=== PATIENT | female | born 1950 | race African-American/Black ===

== ENCOUNTER 2019-01-18 18:25 | Inpatient (IN) | payer OTHER ==
[~2019-01-18] VITALS: Ht 165.1 cm; Wt 104.0 kg
[2019-01-18] MEDS ORDERED: LISINOPRIL 20MG TABLET PO ONE (19:30)
[2019-01-18 19:49] LABS: CHLORIDE 111 mEq/L (98-107)
[2019-01-18 19:56] LABS: EOSINOPHILS % 1.9 % (0.0-5.0); HEMATOCRIT. 35.1 % (36.0-48.0); HEMOGLOBIN. 11.3 g/dL (12.0-16.0); LYMPHOCYTES % 28.3 % (20.0-50.0); MEAN CORPUSCULAR HEMOGLOBIN 26.6 pg (28.0-32.0); MEAN CORPUSCULAR VOLUME 83.1 fL (81.0-99.0); MONOCYTES % 8.2 % (2.0-8.0); NEUTROPHILS % 59.6 % (40.0-76.0); PLATELET 268 x1000/uL (130-400); RED BLOOD CELL COUNT 4.23 mill/uL (4.2-5.4)
[2019-01-18] MEDS ORDERED: ASPIRIN 325MG TABLET PO NR (21:00)
[2019-01-18] MEDS ORDERED: GUAIFENESIN 200MG/10ML SUGAR FREE UDC PO PRN (23:15)
[2019-01-18] MEDS ORDERED: IPRATROPIUM/ALBUTEROL 0.5-3(2.5)MG/3ML NEB INH PRN (23:15)
[2019-01-18] MEDS ORDERED: ZOLPIDEM TARTRATE 5MG TABLET PO PRN (23:15)
[2019-01-18] MEDS ORDERED: DOCUSATE SODIUM 100MG CAPSULE PO PRN (23:15)
[2019-01-18] MEDS ORDERED: CLONIDINE 0.1MG TABLET PO PRN (23:15)
[2019-01-18] MEDS ORDERED: ONDANSETRON HCL 4MG/2ML INJ IV PRN (23:15)
[2019-01-18] MEDS ORDERED: NITROGLYCERIN 0.4MG TABLET SL SL PRN (23:15)
[2019-01-18] MEDS ORDERED: TRAMADOL 50MG TABLET PO PRN (23:15)
[2019-01-18] MEDS ORDERED: MAGNESIUM/ALUMINUM HYDROXIDE/SIMETHICONE 30ML UDC PO PRN (23:15)
[2019-01-18 23:33] LABS: PROTHROMBIN TIME 10.5 sec (9.6-11.0)
[2019-01-18 23:36] LABS: T4 FREE 1.26 ng/dL (0.76-1.46)
[2019-01-18 23:46] LABS: FOLIC ACID (FOLATE) SERUM 12.1 ng/mL (>5.38)
[2019-01-19] VITALS (8 sets, daily range): BP systolic 133–146; BP diastolic 52–81
[2019-01-19] MEDS ORDERED: ENOXAPARIN 80MG/0.8ML SYR SUBCUT NR (04:00)
[2019-01-19] MEDS: ASPIRIN 325MG EC TABLET PO SCH (08:50)
[2019-01-19] MEDS: METOPROLOL TARTRATE 25MG TABLET PO SCH ×2 (08:50→20:57)
[2019-01-19] MEDS: FAMOTIDINE 20MG TABLET PO SCH ×2 (08:50→20:57)
[2019-01-19 09:45] LABS: CREATINE KINASE MB FRACTION 4.1 ng/mL (0.5-3.6)
[2019-01-19] MEDS: NITROGLYCERIN OINT 1GM/INCH UDPKT TD SCH ×2 (11:23→21:01)
[2019-01-19] MEDS ORDERED: ENOXAPARIN 80MG/0.8ML SYR SUBCUT SCH (18:00)
[2019-01-19] MEDS: ACETAMINOPHEN 325MG TABLET PO PRN ×2 (18:23→20:57)
[2019-01-19 19:16] LABS: CREATINE KINASE MB FRACTION 2.9 ng/mL (0.5-3.6)
[2019-01-20 04:00] VITALS: BP 100/47
[2019-01-20] MEDS: ACETAMINOPHEN 325MG TABLET PO PRN (04:45)
[2019-01-20] MEDS: NITROGLYCERIN OINT 1GM/INCH UDPKT TD SCH ×2 (06:27→13:46)
[2019-01-20 06:30] LABS: EOSINOPHILS % 3.7 % (0.0-5.0); HEMATOCRIT. 30.2 % (36.0-48.0); HEMOGLOBIN. 9.8 g/dL (12.0-16.0); LYMPHOCYTES % 39.2 % (20.0-50.0); MEAN CORPUSCULAR VOLUME 83.6 fL (81.0-99.0); MEAN PLATELET VOLUME 10.5 fl (7.4-10.4); MONOCYTES % 12.4 % (2.0-8.0); NEUTROPHILS % 43.7 % (40.0-76.0); PLATELET 220 x1000/uL (130-400); RED BLOOD CELL COUNT 3.62 mill/uL (4.2-5.4); RED CELL DISTRIBUTION WIDTH 15.3 % (11.6-14.6)
[2019-01-20 06:47] LABS: CHLORIDE 111 mEq/L (98-107)
[2019-01-20 08:03] VITALS: BP 119/59
[2019-01-20] MEDS ORDERED: ENOXAPARIN 100MG/ML SYR SUBCUT SCH (09:00)
[2019-01-20] MEDS: METOPROLOL TARTRATE 25MG TABLET PO SCH (10:51)
[2019-01-20] MEDS: ASPIRIN 325MG EC TABLET PO SCH (10:52)
[2019-01-20] MEDS: FAMOTIDINE 20MG TABLET PO SCH (10:52)
[2019-01-20 12:00] VITALS: BP 167/85
[2019-01-20 16:00] VITALS: BP 99/57
[2019-01-20 17:02] VITALS: BP 99/57
== END 2019-01-20 18:31 | disposition short-term general hospital (02) | DRG 281 ==
LOC: ER 21:45 → 6WST 23:45 → EDBEDREQ 23:48 → EDBEDREQTM 23:48 → ENRESERV 01-19 00:17 → 8WST 01-20 08:32
PROVIDERS: ADMIT Internal Medicine; ATTEND Internal Medicine
DX: I21.4 Non-ST elevation (NSTEMI) myocardial infarction (principal); G93.40 Encephalopathy, unspecified; I10 Essential (primary) hypertension; D63.8 Anemia in other chronic diseases classified elsewhere; E66.9 Obesity, unspecified; F02.80 Dementia in other diseases classified elsewhere, unspecified severity, without behavioral disturbance, psychotic disturbance, mood disturbance, and anxiety; G30.9 Alzheimer's disease, unspecified; I25.10 Atherosclerotic heart disease of native coronary artery without angina pectoris; I25.2 Old myocardial infarction; Z79.899 Other long term (current) drug therapy; Z87.891 Personal history of nicotine dependence; Z88.1 Allergy status to other antibiotic agents; Z88.0 Allergy status to penicillin; Z68.38 Body mass index [BMI] 38.0-38.9, adult
CPT/HCPCS: 36415; 71045; 80048; 80061; 82550; 82553; 82607; 82746; 83036; 83540; 83550; 83880; 84439; 84443; 84484; 93005; 93306; 93970; 99285; J1650

== ENCOUNTER 2020-08-03 11:16 | Emergency (ER) | payer OTHER ==
[~2020-08-03] VITALS: Ht 162.6 cm; Wt 100.0 kg
[2020-08-03 14:28] LABS: BASOPHILS % 0.7 % (0.0-2.0); EOSINOPHILS % 0.1 % (0.0-5.0); HEMATOCRIT. 35.1 % (36.0-48.0); HEMOGLOBIN. 11.1 g/dL (12.0-16.0); LYMPHOCYTES % 10.6 % (20.0-50.0); MEAN CORPUSCULAR HEMOGLOBIN 25.2 pg (28.0-32.0); MEAN CORPUSCULAR VOLUME 80.1 fL (81.0-99.0); MEAN PLATELET VOLUME 11.2 fl (7.4-10.4); MONOCYTES % 10.3 % (2.0-8.0); NEUTROPHILS % 78.3 % (40.0-76.0); PLATELET 259 x1000/uL (130-400); RED BLOOD CELL COUNT 4.38 mill/uL (4.2-5.4); RED CELL DISTRIBUTION WIDTH 17.6 % (11.6-14.6)
[2020-08-03] MEDS ORDERED: KETOROLAC 30MG/ML VIAL IV ONE (14:30)
[2020-08-03 14:33] LABS: CHLORIDE 106 mEq/L (98-107)
[2020-08-03 15:20] LABS: PROTHROMBIN TIME 10.5 sec (9.6-11.0)
[2020-08-03 17:15] LABS: CLARITY URINE CLOUDY (CLEAR); KETONES URINE TRACE (NEGATIVE); LEUKOCYTE ESTERASE URINE NEGATIVE (NEGATIVE); NITRITE URINE NEGATIVE (NEGATIVE); OCCULT BLOOD URINE NEGATIVE (NEGATIVE); PH URINE 5.5 (4.5-8.0); PROTEIN URINE 1+ (NEGATIVE); SPECIFIC GRAVITY URINE 1.028 (1.005-1.030)
[2020-08-03 17:17] LABS: COLOR URINE DARK YELLOW (YELLOW)
[2020-08-03 22:41] VITALS: BP 108/72
== END 2020-08-03 22:30 | disposition home or self-care (01) ==
LOC: ER 11:16
DX: M79.604 Pain in right leg (principal); D72.829 Elevated white blood cell count, unspecified; I10 Essential (primary) hypertension; E11.9 Type 2 diabetes mellitus without complications; F03.90 Unspecified dementia, unspecified severity, without behavioral disturbance, psychotic disturbance, mood disturbance, and anxiety
CPT/HCPCS: 36415; 71045; 73502; 80053; 81003; 83880; 84484; 85025; 85610; 93971; 96374; 99285; J1885

== ENCOUNTER 2020-10-17 14:39 | Emergency (ER) | payer OTHER ==
[~2020-10-17] VITALS: Ht 172.7 cm; Wt 80.0 kg
[2020-10-17 16:32] LABS: BASOPHILS % 1.1 % (0.0-2.0); EOSINOPHILS % 1.1 % (0.0-5.0); HEMATOCRIT. 36.3 % (36.0-48.0); HEMOGLOBIN. 11.8 g/dL (12.0-16.0); MEAN PLATELET VOLUME 10.3 fl (7.4-10.4); MONOCYTES % 4.7 % (2.0-8.0); NEUTROPHILS % 74.1 % (40.0-76.0); PLATELET 283 x1000/uL (130-400); RED BLOOD CELL COUNT 4.54 mill/uL (4.2-5.4); RED CELL DISTRIBUTION WIDTH 20.7 % (11.6-14.6)
[2020-10-17 16:37] LABS: CHLORIDE 106 mEq/L (98-107)
[2020-10-17] MEDS ORDERED: SODIUM CHLORIDE 0.9% 1,000 ML IV ONE (17:00)
[2020-10-17] MEDS ORDERED: LEVOFLOXACIN 750MG PREMIX 150 ML IV ONE (17:30)
[2020-10-17 20:40] VITALS: BP 112/54
== END 2020-10-17 21:16 | disposition short-term general hospital (02) ==
LOC: ER 14:53
DX: R55 Syncope and collapse (principal); N39.0 Urinary tract infection, site not specified; F03.90 Unspecified dementia, unspecified severity, without behavioral disturbance, psychotic disturbance, mood disturbance, and anxiety; I10 Essential (primary) hypertension
CPT/HCPCS: 36415; 71045; 80053; 83880; 84484; 85025; 93005; 96365; 99285; J1956; J7030